=== PATIENT | male | born 1945 | race Caucasian/White ===

== ENCOUNTER → 2022-01-18 | Outpatient (CLI) | payer MEDICARE ==
--- NOTE | 2022-01-19 04:07 | MR ---
EXAMINATION TYPE: MR lumbar spine wo con DATE OF EXAM: 01/18/2022 COMPARISON: None HISTORY: RADICULOPATHY, LUMBAR REGION Multiplanar multiecho imaging of the lumbar spine performed with no contrast. The vertebrae have fairly normal alignment. There is degenerative disc space narrowing throughout the lumbar spine. There is facet arthropathy and ligament thickening with spinal stenosis at L4-5. There is minimal posterior disc bulging at L4-5 and L5-S1. No compression fracture. No lumbar paraspinal m ass. The sacroiliac joints are intact. No focal bone destruction. The lumbar neural foramina are fair ly well-maintained. There is rounded area of irregular increased fluid signal in the spinal canal on the left side at the L4-5 level and is likely a 7 mm synovial cyst of the left-sided facet joint. This is contributing to the spinal stenosis. The sacroiliac joints are intact. IMPRESSION: There are some spondylotic changes at L4-5 and L5-S1. Facet arthropathy and mild ligament thickening at L4-5 with spinal stenosis. There is likely an atypical synovial cyst of the L4-5 facet joint on th e left side.
== END | disposition home or self-care (01) ==
LOC: RADMRIMAIN 13:42
PROVIDERS: ATTEND Physician Assistant Medical
DX: M47.27 Other spondylosis with radiculopathy, lumbosacral region (principal); M47.26 Other spondylosis with radiculopathy, lumbar region; M48.061 Spinal stenosis, lumbar region without neurogenic claudication; G43.009 Migraine without aura, not intractable, without status migrainosus
CPT/HCPCS: 72148